=== PATIENT | female | born 1975 | race Caucasian/White ===

== ENCOUNTER 2017-04-06 22:35 | Emergency (ER) | payer SELFPAY ==
[~2017-04-06] VITALS: Ht 175.3 cm; Wt 81.6 kg
[2017-04-07 00:04] VITALS: BP 127/79
[2017-04-07] MEDS ORDERED: cefTRIAXone SOD 1,000 MG VL IM ONE (00:45)
[2017-04-07] MEDS ORDERED: methylPREDNISolone SOD SUCC 125 MG/2 ML VL IM ONE (01:00)
== END 2017-04-07 01:48 | disposition home or self-care (01) ==
LOC: ER 22:43
DX: T63.441A Toxic effect of venom of bees, accidental (unintentional), initial encounter (principal); M19.90 Unspecified osteoarthritis, unspecified site; Y92.89 Other specified places as the place of occurrence of the external cause
CPT/HCPCS: 96372; 99284; J0696; J2930